=== PATIENT | female | born 1975 | race Caucasian/White ===

== ENCOUNTER 2017-01-16 10:52 | Emergency (ER) | payer MEDICAID ==
[~2017-01-16] VITALS: Ht 162.6 cm; Wt 109.8 kg
[~2017-01-16 10:52] MED LIST: ACYCLOVIR200 M1 PO; ATENOLOL50 M1 PO; AUGMENTIN 875 M1 TAB PO; COZAAR; COZAAR50 MG PO; DELTASONE10 M1 PO; DELTASONE20 M1 PO; DIABETA5 M1; FLORASTOR 33 MG1 CAP PO; HCTZ PO; HYDROCODONE BIT1 T48; INSULIN; LISINOPRIL10 MG; METFORMIN HCL500 MG PO; METFORMIN500 MG PO; NOVOLIN 70/30 710 M1 SUBQ; NOVOLIN 70100 UNITS/ SUBQ; OMNICEF300 MG PO; ORETIC25 MG PO; TENORMIN25 MG PO; TENORMIN50 M1 PO; VICODIN 5/500 M1 TAB PO
[2017-01-16 11:05] VITALS: BP 149/78
--- NOTE | 2017-01-16 11:10 | NUR ---
Patient ambulated to bed 02.
[2017-01-16] MEDS ORDERED: LOSARTAN POTAS100 MG PO (11:18)
[2017-01-16] MEDS ORDERED: GLUCOPHAGE1000 MG PO (11:18)
[2017-01-16] MEDS ORDERED: HYDROCHLOROTHIA25 M1 PO (11:18)
[2017-01-16] MEDS ORDERED: HUMALOG100 UNIT/1 SQ (11:18)
[2017-01-16] MEDS ORDERED: METOPROLOL SUCC25 MG PO (11:18)
--- NOTE | 2017-01-16 11:25 | NUR ---
PT CAME TO ER W/C/O MADRIGAL TO RIGHT SIDE OF HEAD X 5 DAYS, PT. STATES THE RIGHT SIDE OF HER FACE IS NUMB TAHT STARTED LAST NOC.HX OF DM AND HTN;DENIES CP/SOB/FEVER/N/V/ BLURRY OF VISSION.PT IS AAOX4;NO ACUTE DISTRESS NOTED AT THIS TIME;HOB ELEVATED;NEEDS ATTENDED;SAFETY PRECAUTION INSTITUTED. AT BEDSIDE.
--- NOTE | 2017-01-16 11:25 | NUR ---
Dr. Boss evaluating patient at bedside.
[2017-01-16] MEDS ORDERED: IBUPROFEN 800 MG TAB PO ONE (11:35)
[2017-01-16] MEDS ORDERED: METOCLOPRAMIDE 10 MG TAB PO ONE (11:35)
[2017-01-16] MEDS ORDERED: NACL 0.9% 1,000 ML IV ONE (11:35)
--- NOTE | 2017-01-16 11:45 | NUR ---
PT WENT TO CT SCAN ACCOMPANIED BY APARTMENT LEASING AGENT.NO ACUTE DISTRESS NOTED AT THIS TIME.
--- NOTE | 2017-01-16 11:58 | NUR ---
Patient back from CT via [facility].
--- NOTE | 2017-01-16 13:00 | NUR ---
.9 NORMAL SALINE WAS COMPLETED AT 1255.NADR WERE NOTED.
--- NOTE | 2017-01-16 13:29 | NUR ---
Patient discharged with v/s stable. Written and verbal after care instructions given and explained. Patient alert, oriented and verbalized understanding of instructions. Ambulatory with steady gait. All questions addressed prior to discharge. ID band removed. Patient advised to follow up with PMD.Opportunity to ask questions provided and answered.ADVISED PT TO INCREASE FLUID INTAKE AND PT AGREED TO IT.
[2017-01-16 13:31] VITALS: BP 147/78
== END 2017-01-16 13:29 | disposition home or self-care (01) ==
LOC: MED 10:57
DX: E86.0 Dehydration (principal); E11.65 Type 2 diabetes mellitus with hyperglycemia; Z79.4 Long term (current) use of insulin; E87.1 Hypo-osmolality and hyponatremia; I10 Essential (primary) hypertension
CPT/HCPCS: 36415; 70450; 71010; 80053; 81025; 84484; 85025; 85651; 93005; 99285; J7030; J8597; Q0092

== ENCOUNTER 2017-07-28 08:13 | Emergency (ER) | payer MEDICAID ==
[~2017-07-28] VITALS: Ht 162.6 cm; Wt 109.8 kg
[~2017-07-28 08:13] MED LIST changes: +ACYC200C4 PO; -ACYCLOVIR200 M1 PO; +ATEN50TA2 PO; -ATENOLOL50 M1 PO; -AUGMENTIN 875 M1 TAB PO; +CEFD300C3 PO; -COZAAR; -COZAAR50 MG PO; -DELTASONE10 M1 PO; -DELTASONE20 M1 PO; -DIABETA5 M1; -FLORASTOR 33 MG1 CAP PO; -HCTZ PO; +HYDR25TA32 PO; -HYDROCODONE BIT1 T48; +INSU-1163 SQ; -INSULIN; -LISINOPRIL10 MG; +LOSA100T25 PO; +METF1000 PO; +METF500T4 PO; -METFORMIN HCL500 MG PO; -METFORMIN500 MG PO; +METO25TE47 PO; -NOVOLIN 70/30 710 M1 SUBQ; -NOVOLIN 70100 UNITS/ SUBQ; -OMNICEF300 MG PO; -ORETIC25 MG PO; +PRED10TA5 PO; +PRED20TA5 PO; +SACC250C1 PO; -TENORMIN25 MG PO; -TENORMIN50 M1 PO; -VICODIN 5/500 M1 TAB PO
[2017-07-28 08:45] VITALS: BP 159/96
--- NOTE | 2017-07-28 09:46 | NUR ---
Patient ambulated to OF to be evaluated as fast track by Dr. Baltazar. RN evaluating patient.
--- NOTE | 2017-07-28 09:55 | NUR ---
PT PRESENTS TO ER W/C/O LEFT EAR PAIN X2 DAYS. HX DM, HTN. DENIES N/V/D; SKIN IS PINK/WARM/DRY; AAOX4 WITH EVEN AND STEADY GAIT; LUNGS CLEAR BL; HR EVEN AND REGULAR; PT DENIES ANY FEVER, CP, SOB, OR COUGH AT THIS TIME; PATIENT STATES PAIN OF 10/10 AT THIS TIME; VSS; PATIENT POSITIONED FOR COMFORT; HOB ELEVATED; BEDRAILS UP X2; BED DOWN. ER MD MADE AWARE OF PT STATUS.
[2017-07-28] MEDS ORDERED: IBUPROFEN 600 MG TAB PO ONE (10:10)
[2017-07-28 10:24] VITALS: BP 148/98
== END 2017-07-28 10:24 | disposition home or self-care (01) ==
LOC: MED 08:13
DX: J02.9 Acute pharyngitis, unspecified (principal); M54.2 Cervicalgia; E11.9 Type 2 diabetes mellitus without complications; I10 Essential (primary) hypertension; Z79.899 Other long term (current) drug therapy
CPT/HCPCS: 99283

== ENCOUNTER 2017-07-29 23:26 | Emergency (ER) | payer MEDICAID ==
[~2017-07-29] VITALS: Ht 162.6 cm; Wt 109.3 kg
[2017-07-29 23:35] VITALS: BP 152/94
--- NOTE | 2017-07-29 23:57 | NUR ---
PT. AMBULATES TO ER BED 8
--- NOTE | 2017-07-30 00:04 | NUR ---
42Y/F PT. PRESENTS TO ED WITH C/O LT. EAR PAIN X 3 DAYS. NO N/V/D NOR FEVER, HX. DM, HTN. AAO X4, AMBULATORY WITH STEADY GAIT. RESPIRATIONS ROOM AIR, EVEN AND UNLABORED. SKIN WARM AND DRY. C/O LT. EAR PAIN 08/18. VSS, ER MADE AWARE OF PT. STATUS.
--- NOTE | 2017-07-30 00:05 | NUR ---
Patient being evaluated by physician at bedside.
[2017-07-30] MEDS ORDERED: ONDANSETRON 4 MG/2 ML VIAL IVP ONE (00:10)
[2017-07-30] MEDS ORDERED: MORPHINE SULFATE 4 MG/ML SYR IVP ONE (00:10)
[2017-07-30] MEDS ORDERED: DEXAMETHASONE 10 MG/ML VIAL IVP ONE (00:15)
[2017-07-30 00:21] LABS: BASOPHILS # (AUTO) 0.1 K/uL (0.00-0.22); BASOPHILS % (AUTO) 1.5 % (0.0-2.0); EOSINOPHILS # (AUTO) 0.1 K/uL (0-0.4); EOSINOPHILS % (AUTO) 1.4 % (0.0-4.0); HEMOGLOBIN 12.7 g/dL (12.0-16.0); LYMPHOCYTES # (AUTO) 1.7 K/uL (2.5-16.5); MEAN CORPUSCULAR HEMOGLOBIN 26 pg (27-31); MEAN CORPUSCULAR HGB CONC 33 g/dL (33-37); MEAN CORPUSCULAR VOLUME 79 fL (80-94); MONOCYTES # (AUTO) 0.9 K/uL (0.8-1.0); MONOCYTES % (AUTO) 10.3 % (1.7-9.3); NEUTROPHILS # (AUTO) 5.5 K/uL (1.8-7.7); NEUTROPHILS % (AUTO) 66.8 % (42.2-75.2); PLATELET COUNT (AUTO) 248 K/uL (140-450); RED BLOOD CELL COUNT(AUTO) 4.94 MIL/uL (4.20-5.40); RED CELL DISTRIBUTION WIDTH 14.4 % (11.6-13.7); WHITE BLOOD COUNT (AUTO) 8.3 K/uL (4.8-10.8)
[2017-07-30 00:31] LABS: ANION GAP 14.2 (8-16); CARBON DIOXIDE 27.8 mmol/L (21-32)
[2017-07-30 00:37] LABS: ALBUMIN 3.3 g/dL (3.4-5.0); TOTAL BILIRUBIN 0.3 mg/dL (0.0-1.0)
--- NOTE | 2017-07-30 01:00 | NUR ---
TAKE PT. TO CT
--- NOTE | 2017-07-30 01:30 | NUR ---
PT. BACK FROM CT
--- NOTE | 2017-07-30 02:20 | NUR ---
Patient appears to be resting comfortably in bed. Vital Signs within normal limits. Respirations even and unlabored.
[2017-07-30] MEDS ORDERED: CLINDAMYCIN 900 MG in DEXTROSE 5% 100 ML IV ONE (02:25)
[2017-07-30] MEDS ORDERED: CLINDAMYCIN 900 MG/6 ML VIAL IV ONE (02:35)
--- NOTE | 2017-07-30 03:20 | NUR ---
Patient appears to be resting comfortably in bed. Vital Signs within normal limits. Respirations even and unlabored.
--- NOTE | 2017-07-30 03:21 | NUR ---
Patient to be transferred to [facility]. Is being transferred due to HIGHER LEVEL OF CARE. Receiving facility has accepting physician and available space. ER physician has signed transfer form. Patient or responsible alliance party has agreed to transfer and signed form. Patient belongings inventoried and will be sent with patient. Copy of nursing notes, lab reports, EKG, Physicians Orders and X-rays to be sent with patient. Report called to [facility] receiving facility. [facility] ambulance service has been called for transfer. ETA is 30 MINS.
[2017-07-30 03:31] VITALS: BP 151/86
--- NOTE | 2017-07-30 03:35 | NUR ---
TRANSFER PT. TO [facility] VIA AMBULANCE AT THIS TIME. VSS, NO S/SX OF DISTRESS UPON TRANSFER.
== END 2017-07-30 03:34 | disposition short-term general hospital (02) ==
LOC: MED 23:26
DX: J36 Peritonsillar abscess (principal); K04.7 Periapical abscess without sinus; E11.9 Type 2 diabetes mellitus without complications; I10 Essential (primary) hypertension
CPT/HCPCS: 36415; 70491; 80053; 85025; 96365; 96375; 99285; J1100; J2270; J2405; J3490; Q9967

== ENCOUNTER 2017-08-03 10:23 | Emergency (ER) | payer MEDICAID ==
[~2017-08-03] VITALS: Ht 162.6 cm; Wt 106.1 kg
[~2017-08-03 10:23] MED LIST changes: -METO25TE47 PO; +METO25TE71 PO
[2017-08-03 10:34] VITALS: BP 159/99
--- NOTE | 2017-08-03 11:06 | NUR ---
PATIENT PRESENTS TO ED WITH 42/F PRESENT TO ER C/O RT SIDE FACIAL PAIN AND RT HAND NUMBNESS x LAST NIGHT. PAIN 8/10 SHARP RADIATING RT UPPER EXTREMITY. HX: DM MEDS: METOPROLOL 25MG, METFORMIN 1000MG AND LANTUS INSU; . DENIES N/V/D; SKIN IS PINK/WARM/DRY; AAOX4 WITH EVEN AND STEADY GAIT; LUNGS CLEAR BL; HR EVEN AND REGULAR; PT DENIES ANY FEVER, CP, SOB, OR COUGH AT THIS TIME; PATIENT STATES PAIN OF 8/10 AT THIS TIME; VSS; PATIENT POSITIONED FOR COMFORT; HOB ELEVATED; BEDRAILS UP X2; BED DOWN. ER MD MADE AWARE OF PT STATUS.
--- NOTE | 2017-08-03 11:11 | NUR ---
DR MAZA EVALUATING AAO PT WITH DAUGHTER AT BEDSIDE
[2017-08-03 11:49] LABS: BASOPHILS # (AUTO) 0.2 K/uL (0.00-0.22); BASOPHILS % (AUTO) 3.5 % (0.0-2.0); EOSINOPHILS # (AUTO) 0.1 K/uL (0-0.4); HEMATOCRIT 41.2 % (36-48); HEMOGLOBIN 13.4 g/dL (12.0-16.0); LYMPHOCYTES # (AUTO) 1.7 K/uL (2.5-16.5); MEAN CORPUSCULAR HEMOGLOBIN 26 pg (27-31); MEAN CORPUSCULAR HGB CONC 33 g/dL (33-37); MEAN CORPUSCULAR VOLUME 79 fL (80-94); MONOCYTES # (AUTO) 0.7 K/uL (0.8-1.0); MONOCYTES % (AUTO) 10.1 % (1.7-9.3); NEUTROPHILS # (AUTO) 4.3 K/uL (1.8-7.7); NEUTROPHILS % (AUTO) 61.4 % (42.2-75.2); PLATELET COUNT (AUTO) 320 K/uL (140-450); RED BLOOD CELL COUNT(AUTO) 5.19 MIL/uL (4.20-5.40); RED CELL DISTRIBUTION WIDTH 14.7 % (11.6-13.7)
[2017-08-03 11:52] LABS: APPEARANCE,URINE CLEAR (CLEAR); BILIRUBIN,URINE NEGATIVE (NEGATIVE); BLOOD, URINE NEGATIVE (NEGATIVE); COLOR,URINE YELLOW (YELLOW); LEUKOCYTE ESTERASE ,URINE NEGATIVE (NEGATIVE); NITRITE, URINE NEGATIVE (NEGATIVE); UGLUCOSE 3+ (NEGATIVE)
[2017-08-03 12:03] LABS: CARBON DIOXIDE 28.5 mmol/L (21-32); CREATININE 0.8 mg/dL (0.6-1.3); POTASSIUM 3.5 mmol/L (3.5-5.1)
[2017-08-03 12:05] LABS: ALBUMIN 3.2 g/dL (3.4-5.0); TOTAL BILIRUBIN 0.3 mg/dL (0.0-1.0)
[2017-08-03 12:28] VITALS: BP 138/92
== END 2017-08-03 12:28 | disposition home or self-care (01) ==
LOC: MED 10:23
DX: E11.9 Type 2 diabetes mellitus without complications (principal); I10 Essential (primary) hypertension
CPT/HCPCS: 36415; 70450; 80053; 81003; 82948; 85025; 99285

== ENCOUNTER 2018-10-29 16:47 | Emergency (ER) | payer MEDICAID ==
[~2018-10-29] VITALS: Ht 162.6 cm; Wt 105.2 kg
[~2018-10-29 16:47] MED LIST changes: -LOSA100T25 PO; +LOSA100T51 PO; +METF-988 PO; -METF500T4 PO
[2018-10-29 16:55] VITALS: BP 165/98
--- NOTE | 2018-10-29 17:15 | NUR ---
bib self with c/o dysuria x today. Patient denies any fevers, vaginal discharge, or n/v/d. Patient also reports of 8/10 vaginal pain and "hottness".
[2018-10-29] MEDS ORDERED: cefTRIAXone 500 MG in LIDOCAINE MPF 1% - 5 mL VIAL 1 ML IM ONE (17:25)
--- NOTE | 2018-10-29 18:08 | NUR ---
Patient discharged with v/s stable. Written and verbal after care instructions given and explained. Patient alert, oriented and verbalized understanding of instructions. Ambulatory with steady gait. All questions addressed prior to discharge. ID band removed. Patient advised to follow up with PMD. Rx of PYRIDIUM AND LEVAQUIN given. Patient educated on indication of medication including possible reaction and side effects. Opportunity to ask questions provided and answered.
[2018-10-29 18:09] VITALS: BP 165/98
== END 2018-10-29 18:08 | disposition home or self-care (01) ==
LOC: MED 16:47
DX: N39.0 Urinary tract infection, site not specified (principal); E11.9 Type 2 diabetes mellitus without complications; I10 Essential (primary) hypertension; Z79.4 Long term (current) use of insulin; Z79.899 Other long term (current) drug therapy
CPT/HCPCS: 81002; 81025; 82948; 87086; 96372; 99283; J0696; J2001

== ENCOUNTER 2018-11-12 10:59 | Emergency (ER) | payer MEDICAID ==
[~2018-11-12] VITALS: Ht 162.6 cm; Wt 105.7 kg
[2018-11-12 11:02] VITALS: BP 120/71
[2018-11-12] MEDS ORDERED: FAMOTIDINE 20 MG TAB PO ONE (11:55)
[2018-11-12] MEDS ORDERED: KETOROLAC 60 MG/2 ML VIAL IM ONE (11:55)
[2018-11-12 12:28] LABS: BASOPHILS # (AUTO) 0.1 K/uL (0.00-0.22); BASOPHILS % (AUTO) 0.7 % (0.0-2.0); EOSINOPHILS # (AUTO) 0.1 K/uL (0-0.4); EOSINOPHILS % (AUTO) 1.7 % (0.0-4.0); HEMATOCRIT 35.9 % (36-48); LYMPHOCYTES # (AUTO) 1.9 K/uL (2.5-16.5); LYMPHOCYTES % (AUTO) 24.8 % (20.5-51.1); MEAN CORPUSCULAR HEMOGLOBIN 22 pg (27-31); MEAN CORPUSCULAR HGB CONC 31 g/dL (33-37); MEAN CORPUSCULAR VOLUME 71.1 fL (80-94); MONOCYTES # (AUTO) 0.5 K/uL (0.8-1.0); MONOCYTES % (AUTO) 6.8 % (1.7-9.3); PLATELET COUNT (AUTO) 255 K/uL (140-450); RED BLOOD CELL COUNT(AUTO) 5.05 MIL/uL (4.20-5.40); RED CELL DISTRIBUTION WIDTH 16.6 % (11.6-13.7); WHITE BLOOD COUNT (AUTO) 7.6 K/uL (4.8-10.8)
[2018-11-12 12:39] LABS: APPEARANCE,URINE CLEAR (CLEAR); BILIRUBIN,URINE NEGATIVE (NEGATIVE); BLOOD, URINE NEGATIVE (NEGATIVE); COLOR,URINE YELLOW (YELLOW); LEUKOCYTE ESTERASE ,URINE NEGATIVE (NEGATIVE); NITRITE, URINE NEGATIVE (NEGATIVE); PH,URINE 6.5 (5.0-9.0); UGLUCOSE 2+ (NEGATIVE)
[2018-11-12 12:51] LABS: CARBON DIOXIDE 26.9 mmol/L (21-32); CREATININE 0.6 mg/dL (0.6-1.3); POTASSIUM 3.9 mmol/L (3.5-5.1); TOTAL BILIRUBIN 0.3 mg/dL (0.0-1.0)
[2018-11-12 12:59] LABS: ALBUMIN 3.2 g/dL (3.4-5.0)
[2018-11-12 14:09] VITALS: BP 132/87
== END 2018-11-12 14:09 | disposition home or self-care (01) ==
LOC: MED 10:59
DX: K21.9 Gastro-esophageal reflux disease without esophagitis (principal); E11.9 Type 2 diabetes mellitus without complications; I10 Essential (primary) hypertension; Z79.899 Other long term (current) drug therapy; Z79.4 Long term (current) use of insulin
CPT/HCPCS: 36415; 76705; 80053; 81003; 81025; 82948; 83690; 85025; 96372; 99284; J1885; Q0092

== ENCOUNTER 2019-06-11 20:30 | Emergency (ER) | payer MEDICAID ==
[~2019-06-11] VITALS: Ht 162.6 cm; Wt 101.6 kg
[2019-06-11 20:45] VITALS: BP 135/81
[2019-06-11 22:23] VITALS: BP 140/60
[2019-06-11] MEDS ORDERED: KETOROLAC 60 MG/2 ML VIAL IM ONE (22:55)
== END 2019-06-11 23:28 | disposition home or self-care (01) ==
LOC: MED 20:30
DX: M79.601 Pain in right arm (principal); N64.4 Mastodynia; E11.9 Type 2 diabetes mellitus without complications; I10 Essential (primary) hypertension; Z98.890 Other specified postprocedural states; Z79.4 Long term (current) use of insulin; Z79.899 Other long term (current) drug therapy
CPT/HCPCS: 96372; 99283; J1885

== ENCOUNTER 2019-06-25 11:41 | Emergency (ER) | payer MEDICAID ==
[~2019-06-25] VITALS: Ht 165.1 cm; Wt 105.7 kg
[2019-06-25 11:47] VITALS: BP 123/66
--- NOTE | 2019-06-25 11:50 | NUR ---
C/O GENERALIZED BODY ACHES, CHILLS AND COUGH X3 DAYS. PT STATES SHE IS COUGHING SO HARD THAT SHE IS VOMITING "YELLOW LIQUID THAT SMELLS REALLY BAD". DENIES FEVER/DIARRHEA, ABD PAIN. BED IN LOW POSITION, SIDE RAIL UP X1
--- NOTE | 2019-06-25 11:52 | NUR ---
PT AMBULATED TO ER BED 12
[2019-06-25 12:29] VITALS: BP 123/66
--- NOTE | 2019-06-25 12:30 | NUR ---
Patient discharged with v/s stable. Written and verbal after care instructions given and explained. Patient alert, oriented and verbalized understanding of instructions. Ambulatory with steady gait. All questions addressed prior to discharge. ID band removed. Patient advised to follow up with PMD. Rx of ZOFRAN, MOTRIN & PREDNISONE given. Patient educated on indication of medication including possible reaction and side effects. Opportunity to ask questions provided and answered.
== END 2019-06-25 12:30 | disposition home or self-care (01) ==
LOC: MED 11:41
DX: R05 Cough (principal); M79.10 Myalgia, unspecified site; R11.2 Nausea with vomiting, unspecified; E11.9 Type 2 diabetes mellitus without complications; I10 Essential (primary) hypertension; Z98.890 Other specified postprocedural states; Z79.4 Long term (current) use of insulin; Z79.899 Other long term (current) drug therapy
CPT/HCPCS: 81002; 81025; 99283

== ENCOUNTER 2019-07-01 14:17 | Emergency (ER) | payer MEDICAID ==
[~2019-07-01] VITALS: Ht 165.1 cm; Wt 104.3 kg
[2019-07-01 14:23] VITALS: BP 144/92
--- NOTE | 2019-07-01 14:27 | NUR ---
Note alon in EDM - 07/01/19 at 1430 by [email or web address] PT TO WAIT IN [facility]. CP IS WITH COUGHING. PT TACHY AT 109, WILL CONTINUE TO MONITOR.
--- NOTE | 2019-07-01 14:30 | NUR ---
Jesus chi in [facility] - 07/01/19 at 1434 by [email or web address] PT PLACED IN CHAIR UNTIL AVAILABLE BED. ACCU CHECK [phone]
--- NOTE | 2019-07-01 14:34 | NUR ---
EKG BY GUS CAMARILLO IN TRIAGE ROOM
--- NOTE | 2019-07-01 14:42 | NUR ---
PT GIVING URINE SAMPLE
--- NOTE | 2019-07-01 14:50 | NUR ---
PT TO BED 4
--- NOTE | 2019-07-01 14:52 | NUR ---
PT TO BED 4
--- NOTE | 2019-07-01 15:05 | NUR ---
PT BIB FAMILY WITH C/O CP WITH COUGH. WAS SEEN ON THURSDAY FOR DRY COUGH, WAS GIVEN PREDNISONE AND IBUPROFEN, NO RELIEF. PT STATES SHE FEELS VERY FATIGUED. PAIN 9/10 AT THE MEDIAL REGION OF THE CHEST. GETS WORSE WITH COUGHING BUT AT GENERAL PAIN IS 5/10 AT THIS TIME. PT CONNECTED TO THE MONITOR , HR 107. BREATHING EVEN AND NON-LABORED. LUNGS SOUNDS CLEAR BILATERALLY. PT STATES OF HAVING COUGH WITH FLAMES, YELLOWISH COLOR AND HAS FOULD ODOR OFTEN. DENIES ANY FEVER OR CHILLS, HAS NAUSEA , VOMITED X1 YESTERDAY. PT HAS HIGH BS . TAKES LANTUS 40 UNITS AND HUMULIN R 20 UNITS AT HOME. NO INSULIN TAKEN AT HOME TOADY , TOOK METFORMIN IN AM. PT LYING COMFORTABLY IN HER BED. ER TO SEE THE PT. WILL CONTINUE TO MONITOR PT.
--- NOTE | 2019-07-01 15:48 | NUR ---
X-RAY AT THE BEDSIDE.
[2019-07-01 16:08] LABS: BASOPHILS # (AUTO) 0.1 K/uL (0.00-0.22); BASOPHILS % (AUTO) 0.9 % (0.0-2.0); EOSINOPHILS # (AUTO) 0.1 K/uL (0-0.4); EOSINOPHILS % (AUTO) 0.7 % (0.0-4.0); HEMATOCRIT 36.7 % (36-48); HEMOGLOBIN 11.6 g/dL (12.0-16.0); LYMPHOCYTES # (AUTO) 1.8 K/uL (2.5-16.5); LYMPHOCYTES % (AUTO) 20.2 % (20.5-51.1); MEAN CORPUSCULAR HEMOGLOBIN 22 pg (27-31); MEAN CORPUSCULAR HGB CONC 31 g/dL (33-37); MEAN CORPUSCULAR VOLUME 69.9 fL (80-94); MONOCYTES # (AUTO) 0.8 K/uL (0.8-1.0); MONOCYTES % (AUTO) 8.4 % (1.7-9.3); NEUTROPHILS # (AUTO) 6.4 K/uL (1.8-7.7); NEUTROPHILS % (AUTO) 69.8 % (42.2-75.2); PLATELET COUNT (AUTO) 459 K/uL (140-450); RED BLOOD CELL COUNT(AUTO) 5.26 MIL/uL (4.20-5.40); RED CELL DISTRIBUTION WIDTH 18.4 % (11.6-13.7); WHITE BLOOD COUNT (AUTO) 9.1 K/uL (4.8-10.8)
[2019-07-01] MEDS ORDERED: NACL 0.9% 1,000 ML IV ONE (16:25)
[2019-07-01 16:28] LABS: PROTHROMBIN TIME 9.7 secs (10.8-13.4)
[2019-07-01 16:32] LABS: ALBUMIN 2.9 g/dL (3.4-5.0); ANION GAP 11.7 (8-16); CARBON DIOXIDE 30.4 mmol/L (21-32); POTASSIUM 4.1 mmol/L (3.5-5.1); TOTAL BILIRUBIN 0.2 mg/dL (0.0-1.0)
--- NOTE | 2019-07-01 16:54 | NUR ---
PT MOVED TO BED 2.
--- NOTE | 2019-07-01 16:54 | NUR ---
Jesus chi in [facility] - 07/01/19 at 1654 by [facility] PT MOVED TO BED 4.
[2019-07-01] MEDS ORDERED: cefTRIAXone 1,000 MG VIAL ONE (17:56)
--- NOTE | 2019-07-01 19:26 | NUR ---
Patient discharged with v/s stable. Written and verbal after care instructions given and explained. Patient alert, oriented and verbalized understanding of instructions. Ambulatory with steady gait. All questions addressed prior to discharge. ID band removed. Patient advised to follow up with PMD. Rx of augmentin 87g mg, Azithromycin 250mg, and Tessalon Perles 100mg given. Patient educated on indication of medication including possible reaction and side effects. Opportunity to ask questions provided and answered.
[2019-07-01 19:28] VITALS: BP 119/77
--- NOTE | 2019-07-04 07:55 | NUR ---
Late entry. CXonfirmed with RN that 1000 ml 0.9 NS completed at 1730
== END 2019-07-01 19:24 | disposition home or self-care (01) ==
LOC: MED 14:17
DX: J18.8 Other pneumonia, unspecified organism (principal); R51 Headache; R10.9 Unspecified abdominal pain; I10 Essential (primary) hypertension; E11.9 Type 2 diabetes mellitus without complications; Z79.84 Long term (current) use of oral hypoglycemic drugs; Z79.2 Long term (current) use of antibiotics; Z79.4 Long term (current) use of insulin; Z79.899 Other long term (current) drug therapy
CPT/HCPCS: 36415; 71045; 80053; 83880; 84484; 85025; 85379; 85610; 85730; 93005; 96365; 99284; J0696; J7030; Q0092

== ENCOUNTER 2019-09-06 18:16 | Emergency (ER) | payer MEDICAID ==
[~2019-09-06] VITALS: Ht 162.6 cm; Wt 108.4 kg
[2019-09-06 18:33] VITALS: BP 158/70
--- NOTE | 2019-09-06 19:11 | NUR ---
PT AMBULATED TO BED 06.
--- NOTE | 2019-09-06 19:11 | NUR ---
PT ARRVIED ED C/O POSSIBLE BARTHOLIN CYST X5 DAYS. PAIN BEGAN TODAY AND DESCRIBES IT PULSATING AND RATES IT 10. PT STATES IT HURTS WHYEN SHE SITS OR WALKS. NO BLEEDING OR DISCHARGE NOTED. VSS. NKA. PMH: HTN, DM.
--- NOTE | 2019-09-06 19:20 | NUR ---
Dr. Solitario examining patient.
[2019-09-06] MEDS ORDERED: LIDOCAINE MPF 1% 10 MG/ML VIAL INJ ONE (19:50)
--- NOTE | 2019-09-06 20:00 | NUR ---
Accompanied Dr. Solitario for I&D procedure for female patient. Lidocaine administered by Dr. Solitario.
[2019-09-06 20:41] VITALS: BP 158/70
--- NOTE | 2019-09-06 20:41 | NUR ---
D/C INSTRUCTIONS GIVEN BY DR. SINGLETARY.
== END 2019-09-06 20:41 | disposition home or self-care (01) ==
LOC: MED 18:16
DX: N76.4 Abscess of vulva (principal); E11.9 Type 2 diabetes mellitus without complications; I10 Essential (primary) hypertension; Z79.4 Long term (current) use of insulin; Z79.899 Other long term (current) drug therapy; Z79.2 Long term (current) use of antibiotics
CPT/HCPCS: 56405; 99284; J2001

== ENCOUNTER 2019-09-07 15:19 | Emergency (ER) | payer MEDICAID ==
[~2019-09-07] VITALS: Ht 162.6 cm; Wt 106.6 kg
[2019-09-07 15:24] VITALS: BP 138/92
[2019-09-07] MEDS ORDERED: BACITRACIN OINT 500 UNITS/GM PKT TP ONE (15:53)
[2019-09-07 16:12] VITALS: BP 140/91
== END 2019-09-07 16:12 | disposition home or self-care (01) ==
LOC: MED 15:19
DX: Z48.01 Encounter for change or removal of surgical wound dressing (principal); E11.9 Type 2 diabetes mellitus without complications; I10 Essential (primary) hypertension; Z79.899 Other long term (current) drug therapy; Z79.2 Long term (current) use of antibiotics; Z79.4 Long term (current) use of insulin
CPT/HCPCS: 99281

== ENCOUNTER 2019-11-19 16:31 | Emergency (ER) | payer MEDICAID ==
[~2019-11-19] VITALS: Ht 165.1 cm; Wt 105.2 kg
[2019-11-19 16:34] VITALS: BP 175/94
--- NOTE | 2019-11-19 16:44 | NUR ---
44 Y/O F C/C OF RIGHT SIDED FACIAL NUMBNESS AND LUE NUMBNESS STARTING AT 1100 HOURS TODAY. PER PATIENT HAD BEEN HOSPITALIZED THREE YEARS AGO IN [facility] FOR A "PRE-STROKE" X 1 WEEK. NEURO ASSESSMENT PERFORMED: PUPILS PERRLA, 5/5 STRENGTH IN BILATERAL UPPER EXTREMITIES; 5/5 STRENGTH IN BILATERAL LOWER EXTREMITIES. EQUAL BALANCE ON ALL EXTREMITIES; EYES SYMMETRICAL; ASYMMETRICAL SMILE NOTED, WITH SLIGHT LEFT LABIAL DROOP; ARMS SYMMETRICAL; SPEECH CLEAR. SENSATION PERCEIVED MORE ON RIGHT SIDE OF FACE THAN LEFT; SENSATION PERCEIVED MORE ON RUE THAN LUE. PER PT NKA. HX HTN, DM. RX METOPROLOL, HYDROCHLOROZIDE, METFORMIN, INSULIN, AMLODOPINE. NO N/V/D. SIDE RAIL X1. FAMILY AT BEDSIDE.
--- NOTE | 2019-11-19 17:10 | NUR ---
DR OLIVER AT BEDSIDE
--- NOTE | 2019-11-19 17:14 | NUR ---
[facility] CALLED. RADIOLOGY CALLED.
[2019-11-19 18:01] LABS: BASOPHILS % (AUTO) 0.8 % (0.0-2.0); EOSINOPHILS # (AUTO) 0.2 K/uL (0-0.4); EOSINOPHILS % (AUTO) 2.8 % (0.0-4.0); HEMOGLOBIN 12.4 g/dL (12.0-16.0); LYMPHOCYTES # (AUTO) 2.4 K/uL (2.5-16.5); LYMPHOCYTES % (AUTO) 41.3 % (20.5-51.1); MEAN CORPUSCULAR HEMOGLOBIN 22 pg (27-31); MEAN CORPUSCULAR HGB CONC 31 g/dL (33-37); MEAN CORPUSCULAR VOLUME 71.9 fL (80-94); MONOCYTES # (AUTO) 0.5 K/uL (0.8-1.0); NEUTROPHILS # (AUTO) 2.7 K/uL (1.8-7.7); NEUTROPHILS % (AUTO) 46.1 % (42.2-75.2); PLATELET COUNT (AUTO) 260 K/uL (140-450); RED BLOOD CELL COUNT(AUTO) 5.56 MIL/uL (4.20-5.40); RED CELL DISTRIBUTION WIDTH 17.3 % (11.6-13.7); WHITE BLOOD COUNT (AUTO) 5.8 K/uL (4.8-10.8)
[2019-11-19 18:14] LABS: ANION GAP 9.4 (8-16); CARBON DIOXIDE 30.2 mmol/L (21-32); CREATININE 0.7 mg/dL (0.6-1.3); POTASSIUM 3.6 mmol/L (3.5-5.1)
[2019-11-19 18:21] LABS: ALBUMIN 3.7 g/dL (3.4-5.0); TOTAL BILIRUBIN 0.3 mg/dL (0.0-1.0)
[2019-11-19 18:36] LABS: PROTHROMBIN TIME 9.4 secs (10.8-13.4)
--- NOTE | 2019-11-19 19:09 | NUR ---
RECEIVED REPORT FROM BASIA ASH. TRANSFER OF CARE AT THIS TIME. PT SITTING COMFORTABLY IN BED WITH FAMILY MEMBER AT BEDSIDE. VSS. FACIAL DROOP STILL EVIDENT WITH SMILING. CONTINUES TO REPORT NUMBNESS TO LEFT SIDE EXTREMETIES. AWAITING TX TO [facility] FOR FURTHER EVAL. WILL CONTINUE TO MONITOR.
--- NOTE | 2019-11-19 19:12 | NUR ---
REPORT GIVEN TO BASIA ARREDONDO FOR CONTINUITY OF CARE
[2019-11-19 20:17] LABS: APPEARANCE,URINE CLEAR (CLEAR); BILIRUBIN,URINE NEGATIVE (NEGATIVE); BLOOD, URINE TRACE-I (NEGATIVE); COLOR,URINE YELLOW (YELLOW); LEUKOCYTE ESTERASE ,URINE NEGATIVE (NEGATIVE); NITRITE, URINE NEGATIVE (NEGATIVE); PH,URINE 5.5 (5.0-9.0); UGLUCOSE 3+ (NEGATIVE)
[2019-11-19 20:40] LABS: RBC,URINE 0-5 /HPF (0-5); WBC,URINE 0-5 /HPF (0-5)
[2019-11-19] MEDS ORDERED: ASPIRIN 325 MG TABEC PO ONE (20:45)
[2019-11-19] MEDS ORDERED: ASPIRIN 325 MG TAB ONE (20:54)
--- NOTE | 2019-11-19 20:55 | NUR ---
MEDICATED WITH 325 MG PO ASPIRIN FOR PROPHYLAXIS AND 06/18 MADRIGAL. WILL REASSESS.
--- NOTE | 2019-11-19 21:09 | NUR ---
Patient to be transferred to [facility] ER. Is being transferred due to higher level of care/further evaluation. Receiving facility has accepting physician and available space. ER physician has signed transfer form. Patient or responsible democrat has agreed to transfer and signed form. Patient belongings inventoried and will be sent with patient. Copy of nursing notes, lab reports, EKG, Physicians Orders and X-rays to be sent with patient. Report called to BASIA Cifuentes at receiving facility.
--- NOTE | 2019-11-19 21:17 | NUR ---
Ambulance service has been called for transfer. ETA is 60-90 mins.
--- NOTE | 2019-11-19 21:30 | NUR ---
REPORTS PAIN RELIEF; 4/10. PT STATES IS TOLERABLE AT THIS TIME.
--- NOTE | 2019-11-19 22:52 | NUR ---
[facility] TRANSPORT AT BEDSIDE
[2019-11-19 23:05] VITALS: BP 132/62
--- NOTE | 2019-11-19 23:05 | NUR ---
REPORT GIVEN TO [facility]. PT AMBULATES TO TRANSPORT [facility] WITH STEADY GAIT. VSS. DAUGHTER ACCOMPANYING. PT TO BE TRANSPORTED TO [facility].
== END 2019-11-19 23:05 | disposition short-term general hospital (02) ==
LOC: MED 16:31
DX: R20.0 Anesthesia of skin (principal); E11.65 Type 2 diabetes mellitus with hyperglycemia; I10 Essential (primary) hypertension; R74.0 Nonspecific elevation of levels of transaminase and lactic acid dehydrogenase [LDH]
CPT/HCPCS: 36415; 70496; 70498; 71045; 80053; 81001; 82948; 84484; 85025; 85610; 85730; 86886; 86900; 86901; 93005; 99291; Q0092

== ENCOUNTER 2022-10-03 09:35 | Emergency (ER) | payer MEDICAID ==
[~2022-10-03] VITALS: Ht 167.6 cm; Wt 114.8 kg
[~2022-10-03 09:35] MED LIST changes: +ACYC200C26 PO; -ACYC200C4 PO; +METF-1243 PO; +METF-1274 PO; -METF-988 PO; -METF1000 PO
[2022-10-03 09:46] VITALS: BP 140/79
--- NOTE | 2022-10-03 10:28 | NUR ---
C/O BODY ACHES, HEADACHE,SUBJECTIVE FEVER, COUGH X2DAYS NKA PMH: DM, HTN
[2022-10-03] MEDS ORDERED: IBUP-2213 PO (11:22)
[2022-10-03] MEDS ORDERED: BENZ150C2 PO (11:22)
[2022-10-03] MEDS ORDERED: TAM75 PO (11:22)
--- NOTE | 2022-10-03 11:34 | NUR ---
Patient discharged with v/s stable. Written and verbal after care instructions about Influenza given and explained. Patient alert, oriented and verbalized understanding of instructions. Ambulatory with steady gait. All questions addressed prior to discharge. ID band removed. Patient advised to follow up with PMD. Rx of Benzonatate, Ibuprofen and Tamiflu given. Patient educated on indication of medication including possible reaction and side effects. Opportunity to ask questions provided and answered.
== END 2022-10-03 11:34 | disposition home or self-care (01) ==
LOC: MED 09:35
DX: J11.1 Influenza due to unidentified influenza virus with other respiratory manifestations (principal); Z20.822 Contact with and (suspected) exposure to COVID-19; E11.9 Type 2 diabetes mellitus without complications; I10 Essential (primary) hypertension; Z79.1 Long term (current) use of non-steroidal anti-inflammatories (NSAID); Z79.899 Other long term (current) drug therapy; Z79.2 Long term (current) use of antibiotics; Z79.4 Long term (current) use of insulin
CPT/HCPCS: 99283

== ENCOUNTER 2023-03-01 13:26 | Emergency (ER) | payer MEDICAID ==
[~2023-03-01] VITALS: Ht 162.6 cm; Wt 121.8 kg
[~2023-03-01 13:26] MED LIST changes: +BENZ150C2 PO; +IBUP-2213 PO; +TAM75 PO
[2023-03-01 13:34] VITALS: BP 154/106
--- NOTE | 2023-03-01 14:23 | NUR ---
Patient discharged with v/s stable. Written and verbal after care instructions given and explained. Patient verbalized understanding. Ambulatory with steady gait. All questions addressed prior to discharge. Advised to follow up with PMD.
== END 2023-03-01 14:23 | disposition home or self-care (01) ==
LOC: MED 13:26
DX: R60.9 Edema, unspecified (principal); E11.9 Type 2 diabetes mellitus without complications; I10 Essential (primary) hypertension; Z79.4 Long term (current) use of insulin; Z79.899 Other long term (current) drug therapy; Z98.890 Other specified postprocedural states
CPT/HCPCS: 99281